=== PATIENT | male | born 1995 | race Caucasian/White ===

== ENCOUNTER → 2017-10-29 10:06 | Outpatient (CLI) | payer OTHER, SELFPAY ==
--- NOTE | 2017-10-29 10:01 | DI.REPORT_ITS ---
SYMPTOM/DIAGNOSIS: LEFT SHOULDER PAIN M25.512 LEFT SHOULDER: Multiple views. No priors. No bone or joint abnormality is identified. The soft tissues are unremarkable. IMPRESSION: Negative examination.
== END ==
PROVIDERS: Visit Provider Nurse Practitioner
DX: M25.512 Pain in left shoulder (principal)
CPT/HCPCS: 73030

== ENCOUNTER 2018-12-12 09:34 | Outpatient (REF) | payer OTHER, SELFPAY ==
[2018-12-13 12:44] LABS: Chlamydia Result Negative; GC Result Negative; Specimen Description URINE
== END 2018-12-12 09:54 ==
LOC: NCHCN 09:34
PROVIDERS: PCP Nurse Practitioner Family; Visit Provider Nurse Practitioner Family
DX: Z11.3 Encounter for screening for infections with a predominantly sexual mode of transmission (principal)
CPT/HCPCS: 87491; 87591

== ENCOUNTER 2020-05-04 16:14 | Emergency (ER) | payer SELFPAY ==
[2020-05-04 16:17] VITALS: BP 149/87; PULSE 97; RESP 95; TEMP 36.6
--- NOTE | 2020-05-04 16:30 | DI.RAD_ITS ---
EXAM: XR HAND RT COMPLETE CLINICAL HISTORY: pain, laceration base 5th. TECHNIQUE: 2D digital imaging was performed. COMPARISON: No exams were available for comparison FINDINGS: BONES: No acute fracture is present. There is a well corticated osseous density at the lateral aspec t of the base of the proximal phalanx of the right little finger consistent with old injury. No bony destructive lesion is seen. JOINTS: No dislocation present. SOFT TISSUE: There is a laceration in the posterior medial soft tissues adjacent to the proximal phal anx of the right little finger. No radiopaque foreign bodies are identified. IMPRESSION: Soft tissue laceration. No radiopaque foreign body, acute fracture or dislocation. DATA REPOSITORY: RADIATION DOSE DELIVERED:
--- NOTE | 2020-05-04 16:35 | W.ED.GENAD ---
Discharge Plan Disposition Patient Disposition: HOME Condition: Improving Discharge Details Clinical Impression: Laceration of right little finger Primary Care Provider: Preeti Machado ED Provider: Dwayne Nunn Home Meds and New Rx's Prescriptions: New cephalexin 500 mg capsule 500 mg PO TID 7 Days Qty: 21 RF: 0 Discharge Instructions Instructions: Finger Laceration (ED) Additional Instructions: Leave current dressing in place for 48 hours, then may remove, gently wash with soap and water daily, pat dry, apply bacitracin and replace bandage. Please use splint for 3 to 4 days time to protect the wound. May remove at bedtime and for bathing. Return if you have a fever, foul-smelling discharge from the wound or spreading erythema. Please take Keflex as prescribed. Elevate the hand over the next 24 hours to reduce swelling. May use Tylenol as needed for pain. Return or see your regular doctor for suture removal in 8 to 10 days time. Discharge Data Discharge Date/Time-TO BE ENTERED AT DEPARTURE: 05/04/20 17:41 Medical Decision Making 24-year-old male was cleaning a ice auger he had used for fishing when his hand slipped and he cut the dorsum of his right hand. Tetanus is up-to-date 2018 and the patient has otherwise been well. He has no motor or sensory abnormalities, capillary refill is less than 2 seconds. There is a large U-shaped laceration on the dorsal aspect of the fifth digit of the right hand overlying the proximal phalanx. Patient referred for x-ray which does not show foreign object or bony injury. Patient was anesthetized, liberally irrigated, examined in a bloodless field without evidence of foreign body or deep tissue injury. Patient has normal extension of the affected digit. The wound was subsequently repaired with 14 interrupted nylon sutures with good wound edge approximation. Given the inherently contaminated nature and ice auger I will place him on Keflex to prevent infection. He will return for suture removal. HPI General Mode of arrival: ambulatory. Date/Time Provider Initiated Documentation: 05/04/20 16:15. Limitations to Documentation: no limitations. Information obtained by: patient. History of Present Illness 24 year old M presents to the emergency department with the chief complaint of Right hand fifth digit laceration, described as moderate, Quality is described as dull and constant, and is localized to the right and upper extremity. Patient reports no radiation. Patient started experiencing this minute(s) and it has been constant. No relieving factors improve symptom(s), No exacerbating factors reported . Patient notes no other symptoms.. Patient did receive the following treatments prior to arrival, none Related Data Home Medications Medication Instructions Recorded Confirmed cephalexin 500 mg PO TID 7 Days #21 cap 05/04/20 Previous Rx's Medication Instructions Recorded cephalexin 500 mg PO TID 7 Days #21 cap 05/04/20 Allergies Allergy/AdvReac Type Severity Reaction Status Date / Time No Known Allergies Allergy Unverified 05/18/17 08:10 General Stated Complaint: Laceration MIRIAM: 4 Review of Systems Narrative: Tetanus up-to-date 2018. No other injury. Patient has otherwise been well. 4 systems reviewed and otherwise negative [facility], [facility] Social History Smoking/Tobacco Use Status: Never Smoking risk assessment performed?: Yes Alcohol Intake: never Drug use: Never Substance use type: does not use Do you feel safe at home: Yes Do you feel safe in your relationship?: Yes Exam Narrative Exam Narrative: GEN: awake, alert, oriented 3. Pleasant, well groomed, interactive. HEAD: Normocephalic, atraumatic EYES: PERRL, EOMI CHEST/RESP: No respiratory distress EXT: Full ROM, no edema, no rash approximately 4 cm U-shaped laceration overlying the dorsal aspect of the proximal phalanx of the right fifth digit. Distal sensation intact, capillary refill less 2 seconds, normal extension and flexion of the finger. Neuro: Grossly normal neurologic exam, conversant, interactive. Psych: Speech fluent, thoughts congruent, affect normal Course Vital Signs Vital signs: Vital Signs Temperature 36.6 C 05/04/20 16:17 Pulse 97 H 05/04/20 16:17 Respiratory Rate 95 H 05/04/20 16:17 Blood Pressure 149/87 H 05/04/20 16:17 Temperature 36.6 C 05/04/20 16:17 Pulse 97 H 05/04/20 16:17 Respiratory Rate 95 H 05/04/20 16:17 Blood Pressure 149/87 H 05/04/20 16:17 Pain Level 5 05/04/20 16:17 Procedures Laceration Laceration 1: Site: hand Side (If applicable): right Size (cm): 5 Description: flap Depth: simple, single layer Local Anesthetic: Lidocaine 1% Pre-repair: wound explored, irrigated extensively and deep structures intact Skin layer closed with: nylon Size (cm): 4-0 Number of sutures: 14 Technique: simple, interrupted
--- NOTE | 2020-05-04 17:10 | DI.VRAD_ITS ---
PROCEDURE INFORMATION: Exam: XR Right Hand Exam date and time: 05/04/2020 4:58 PM Age: 24 years old Clinical indication: Injury or trauma; Other: Laceration; Hand; Right TECHNIQUE: Imaging protocol: XR Right hand. Views: 3 or more views. Total images: 3 COMPARISON: No relevant prior studies available. FINDINGS: Bones/joints: There is no acute fracture or dislocation. There is a well-defined ossification adjacent to the base of the 5th digit's proximal phalanx which may represent an old avulsive injury. Soft tissues: There is a large laceration involving the soft tissues adjacent to the proximal phalanx of the 5th digit. There is no associated opaque foreign body. IMPRESSION: Soft tissue laceration without opaque foreign body or acute fracture. Dictated and Authenticated by: Dwayne Bishop MD. Ordering:ZORA Rice MD
[2020-05-04] MEDS: Cephalexin 500 MG CAP, 4 CAPS/BTL PO (17:36)
--- NOTE | 2020-05-04 17:48 | NUR.NOTE ---
wound irrigated, sutured by MD Nunn. Bacitracin, DSD applied. Splint applied. Wound care discussed.
== END 2020-05-04 17:41 | disposition home or self-care (01) ==
PROVIDERS: Emergency Provider Emergency Medicine; PCP Nurse Practitioner Family
DX: S61.216A Laceration without foreign body of right little finger without damage to nail, initial encounter (principal); W26.8XXA Contact with other sharp object(s), not elsewhere classified, initial encounter; Y93.29 Activity, other involving ice and snow
CPT/HCPCS: 12002; 73130

== ENCOUNTER 2020-05-14 10:36 | Emergency (ER) | payer SELFPAY ==
[2020-05-14 10:40] VITALS: BP 139/76; PULSE 79; RESP 15; TEMP 36.5; O2SAT 99
--- NOTE | 2020-05-14 10:51 | ED.GENADUL_ITS ---
Discharge Plan Disposition Patient Disposition: HOME Condition: Stable Discharge Details Clinical Impression: Visit for suture removal Primary Care Provider: Preeti Machado ED Provider: Abigail Howell Discharge Instructions Instructions: Paresthesia (ED), Stitches Removal (ED) Additional Instructions: Keep wound clean and dry. Cover wound with bandage and splint if risk of contamination or reopening of wound. Otherwise you can keep the wound open to air if resting at home to allow edges to dry and heal. Wear the bandage and splint at nighttime for the next 1 to 2 weeks. Follow-up with your primary care doctor in 1 week as needed. Return to the emergency department with any worsening or new concerning symptoms such as fever, worsening redness, pain or swelling. Discharge Data Discharge Date/Time-TO BE ENTERED AT DEPARTURE: 05/14/20 11:20 Discharge Physician: Abigail Howell Medical Decision Making 24-year-old male presents for suture removal of right fifth finger after cut with an ice auger on 05/04/2020. [address]. Area is edematous with slight altered sensation of flap but otherwise there is no evidence of cellulitis and motor grossly intact with normal capillary refill. Discussed with patient that an altered sensation around a new wound can last for several months. 14 sutures were removed by nurse at bedside. Area was closed with 2 gauze and a finger splint was placed. Discussed that the wound is most vulnerable at this time. Patient was advised on the importance of keeping the area clean and covered due the risk of reopening or contamination. Advised to follow up with the primary care doctor for re-evaluation. Usual and customary return precautions given prior to discharge. Medical Records Medical records reviewed: Yes I reviewed the patient's medical records. HPI General Mode of arrival: ambulatory . Date/Time Provider Initiated Documentation: 05/14/20 10:47 . Limitations to Documentation: no limitations . Information obtained by: patient . HPI Narrative: Patient is a 24-year-old male who presents for suture removal of his right fifth finger after sutures placed on 05/04/2020 after cut with an ice auger. Patient had 14 sutures placed at that time. He was treated with Keflex which she finished completely. He states he feels the flap part of the laceration has had tingling and numbness since the initial injury. He denies any pain, fever, discharge. Related Data Allergies Allergy/AdvReac Type Severity Reaction Status Date / Time No Known Allergies Allergy Unverified 05/18/17 08:10 General Stated Complaint: SutureRem MIRIAM: 5 Review of Systems All systems reviewed & are unremarkable except as noted in HPI and below PFSH Social History Smoking/Tobacco Use Status: Never Smoking risk assessment performed?: Yes Alcohol Intake: never Drug use: Never Substance use type: does not use Do you feel safe at home: Yes Do you feel safe in your relationship?: Yes Exam Const General: cooperative, healthy appearing and no acute distress HENMT Head: normal to inspection Mouth: oral mucosae normal Eyes General: appearance normal, both eyes and all related structures Neck Neck: normal visual inspection Resp Effort & Inspection: normal respiratory effort and able to speak in complete sentences Cardio Rate: regular rate Skin General skin exam: no rashes or lesions noted Neuro General: patient alert, patient awake and patient oriented x3 Motor: muscle tone normal throughout Extrem General: capillary refill normal Right upper extremity: hand Hand/finger images: 1. [address] on right medial proximal fifth finger. There is surrounding mild to moderate edema with pink granulation tissue noted at edges of wound but no erythema, crepitus, induration, fluctuance or drainage. He has altered sensation of flap part of wound compared to surrounding edges but motor otherwise intact. Psych Appearance: grossly normal Affect: normal affect Course Vital Signs Vital signs: Vital Signs Temperature 97.7 F 05/14/20 10:40 Pulse 79 05/14/20 10:40 Respiratory Rate 15 05/14/20 10:40 Blood Pressure 139/76 05/14/20 10:40 Pulse Oximetry 99 05/14/20 10:40 Temperature 97.7 F 05/14/20 10:40 Temperature Source Temporal Artery Scan 05/14/20 10:40 Pulse 79 05/14/20 10:40 Respiratory Rate 15 05/14/20 10:40 Respiratory Effort Non-Labored 05/14/20 10:45 Blood Pressure 139/76 05/14/20 10:40 Blood Pressure Position Sitting 05/14/20 10:40 Pulse Oximetry 99 05/14/20 10:40 Oxygen Delivery Method Room Air 05/14/20 10:40 Oxygen Flow Rate 0 05/14/20 10:40 Pain Level 4 05/14/20 10:40
== END 2020-05-14 11:20 | disposition home or self-care (01) ==
PROVIDERS: Emergency Provider Physician Assistant; PCP Nurse Practitioner Family
DX: S61.216D Laceration without foreign body of right little finger without damage to nail, subsequent encounter (principal); W29.8XXD Contact with other powered hand tools and household machinery, subsequent encounter; R20.2 Paresthesia of skin

== ENCOUNTER 2022-08-04 17:50 | Outpatient (REF) | payer SELFPAY ==
[2022-08-04 14:38] LABS: HCT 46.6 % (40.0-50.0); HGB 16.3 g/dL (13.5-17.5); MCH 29.4 pg (27.0-33.0); MCV 84 fL (80-95); MPV 9.6 fL (8.0-11.0); Platelet Count 262 10^3/uL (130-400); RBC 5.54 10^6/uL (4.36-5.78); RDW 12.7 % (11.8-14.1); RDW-SD 39.1 fL; WBC 6.13 10^3/uL (4.4-10.8)
[2022-08-04 14:50] LABS: ALT 58 U/L (16-63); AST 25 U/L (15-37); Albumin 4.3 g/dL (3.4-5.0); Alkaline Phosphatase 76 U/L (46-116); BUN 13 mg/dL (7-18); Bilirubin, Total 0.4 mg/dL (0.2-1.0); Calcium 9.6 mg/dL (8.5-10.1); Calculated LDL 128 mg/dL (<100); Chloride 104 mmol/L (98-107); Cholesterol 208 mg/dL (<200); Estimated GFR 105.79 (mL/min/1.73m2); Glucose 75 mg/dL (74-106); HDL Cholesterol 46 mg/dL (40-60); Potassium 4.4 mmol/L (3.5-5.1); Sodium 141 mmol/L (136-145); Total Protein 7.4 g/dL (6.4-8.2); Triglyceride 172 mg/dL (<150)
== END 2022-08-04 17:51 | disposition home or self-care (01) ==
LOC: NCHCN 17:50
PROVIDERS: PCP Nurse Practitioner Family; Visit Provider Nurse Practitioner Family
DX: Z00.00 Encounter for general adult medical examination without abnormal findings (principal); Z13.0 Encounter for screening for diseases of the blood and blood-forming organs and certain disorders involving the immune mechanism; Z13.220 Encounter for screening for lipoid disorders; Z13.228 Encounter for screening for other metabolic disorders
CPT/HCPCS: 80053; 80061; 85027

== ENCOUNTER 2024-06-29 22:48 | Outpatient (REF) | payer SELFPAY ==
[2024-06-29 14:50] LABS: HCT 51.3 % (40.0-50.0); HGB 17.8 g/dL (13.5-17.5); MCHC 34.7 % (32.0-36.0); MCV 87 fL (80-95); MPV 9.8 fL (8.0-11.0); Platelet Count 288 10^3/uL (130-400); RBC 5.93 10^6/uL (4.36-5.78); RDW 12.6 % (11.8-14.1); RDW-SD 39.5 fL; WBC 6.53 10^3/uL (4.4-10.8)
[2024-06-29 15:19] LABS: ALT 58 U/L (16-63); AST 25 U/L (15-37); Albumin 4.5 g/dL (3.4-5.0); Alkaline Phosphatase 82 U/L (46-116); Anion Gap 13.7 mmol/L (3-11); BUN 11 mg/dL (7-18); Bilirubin, Total 0.6 mg/dL (0.2-1.0); CO2 25.3 mmol/L (21.0-32.0); Calcium 10.1 mg/dL (8.5-10.1); Chloride 104 mmol/L (98-107); Estimated GFR 104.48 (mL/min/1.73m2); Glucose 117 mg/dL (74-106); Potassium 4.2 mmol/L (3.5-5.1); Sodium 143 mmol/L (136-145); Total Protein 7.6 g/dL (6.4-8.2)
== END 2024-06-29 22:49 | disposition home or self-care (01) ==
LOC: NCHCN 22:48
PROVIDERS: PCP Nurse Practitioner Family; Visit Provider Nurse Practitioner Family
DX: Z00.00 Encounter for general adult medical examination without abnormal findings (principal)
CPT/HCPCS: 80053; 85027